=== PATIENT | male | born 1980 | race Two or more races ===

== ENCOUNTER 2019-09-20 14:27 | Outpatient (CLI) | payer OTHER | END 2019-09-20 14:41 | disposition home or self-care (01) | LOC: RAD 14:27 | PROVIDERS: ATTEND Physical Medicine & Rehabilitation | DX: M25.561 Pain in right knee (principal); M25.562 Pain in left knee ==

== ENCOUNTER 2021-04-11 14:49 | Outpatient (CLI) | payer OTHER | END 2021-04-11 15:03 | disposition home or self-care (01) | LOC: RAD 14:49 | PROVIDERS: ATTEND Physical Medicine & Rehabilitation | DX: M54.50 Low back pain, unspecified (principal); M54.6 Pain in thoracic spine ==